=== PATIENT | female | born 1965 | race Caucasian/White ===

== ENCOUNTER 2018-06-29 13:14 | Emergency (ER) | payer MEDICARE, MEDICAID ==
[2018-06-29 13:20] VITALS: BP 138/77
--- NOTE | 2018-06-29 14:27 | RAD ---
HISTORY: FOOSH - both wrists COMPARISONS: None VIEWS: 6 , Frontal, lateral, and oblique views of the left wrist and of the right breast FINDINGS: Right: BONE DENSITY: Normal. BONES: There is no displaced fracture. JOINTS: There is no arthropathy. ALIGNMENT: There is no dislocation. The alignment is anatomic. SOFT TISSUES: Unremarkable. Left: BONE DENSITY: Normal. BONES: There is no displaced fracture. JOINTS: There is no arthropathy. ALIGNMENT: There is no dislocation. The alignment is anatomic. SOFT TISSUES: Unremarkable. OTHER FINDINGS: None. IMPRESSION: NO ACUTE OSSEOUS INJURY BILATERALLY. IF SYMPTOMS PERSIST, RECOMMEND REPEAT IMAGING.
--- NOTE | 2018-06-29 14:28 | RAD ---
HISTORY: bilateral forearm pain s/p fall COMPARISONS: None VIEWS: 2 , Frontal and lateral views of the left forearm FINDINGS: BONE DENSITY: Normal. BONES: There is mild depression of the radial aspect of the radial head JOINTS: There is no arthropathy. ALIGNMENT: There is no dislocation. SOFT TISSUES: Unremarkable. OTHER FINDINGS: None. IMPRESSION: PROBABLE IMPACTED RADIAL HEAD FRACTURE.
--- NOTE | 2018-06-29 14:29 | RAD ---
HISTORY: bilateral forearm pain s/p fall COMPARISONS: None VIEWS: 2 , Frontal and lateral views of the right forearm FINDINGS: BONE DENSITY: Normal. BONES: There is a linear lucency seen through the articular surface of the radial head. JOINTS: There is no arthropathy. ALIGNMENT: There is no dislocation. SOFT TISSUES: Unremarkable. OTHER FINDINGS: None. IMPRESSION: NONDISPLACED RADIAL HEAD FRACTURE.
--- NOTE | 2018-06-29 15:34 | ED ---
Upper Extremity Pain - HPI Summary HPI Summary: Patient is a 52-year-old female presenting to the ED after falling with a FOOSH injury bilaterally in the hallway just approximately 5 minutes [employer] TECH. She is endorsing pain to the bilateral wrists and bilateral forearms. There is no ecchymosis or swelling. She has never injured the arms before. Pain is currently rated a 7/10, constant and throbbing. She denies any other injuries and denies hitting her head. Denies any LOC. She states she is feeling otherwise at her baseline. Eyes any numbness or tingling, pulses +2 intact bilaterally to the radial side. Good cap refill. - History of Current Complaint Chief Complaint: EDExtremityUpper Stated Complaint: FALL/WRIST INJURY Time Seen by Provider: 06/29/18 13:16 Hx Obtained From: Patient Mechanism Of Injury: Fall From A Standing Position Onset/Duration: Started Minutes Ago Timing: Constant Severity Initially: Moderate Severity Currently: Moderate Pain Location: Elbow, Forearm, Wrist Character: Aching Aggravating Factor(s): Movement, Lifting, Flexion, Extension Alleviating Factor(s): Rest, Ice Associated Signs & Symptoms: Positive: Negative Related History: Dominant Hand Right - Risk Factors Non-Orthopedic Risk Factor: Negative DVT Risk Factors: Negative Septic Arthritis Risk Factor: Negative Compartment Syndrome Risk Factors: Pain - Allergies/Home Medications Allergies/Adverse Reactions: Allergies Allergy/AdvReac Type Severity Reaction Status Date / Time MS Amoxicillin Allergy Hives Verified 06/29/18 13:20 [From Augmentin] MS Cephalexin [From Keflex] Allergy Hives Verified 06/29/18 13:20 MS Clavulanic Acid Allergy Hives Verified 06/29/18 13:20 [From Augmentin] MS Prednisone [Prednisone] Allergy Hives Verified 06/29/18 13:20 MS Sulfa Antibiotics Allergy Hives Verified 06/29/18 13:20 [Sulfa Antibiotics] PMH/Surg Hx/FS Hx/Imm Hx Previously Healthy: Yes - Surgical History Surgery Procedure, Year, and Place: reconstruction face -1985 - Immunization History Hx Pertussis Vaccination: No Immunizations Up to Date: Yes Infectious Disease History: No Infectious Disease History: Denies: Traveled Outside the [place] in Last 30 Days - Family History Known Family History: Positive: Cardiac Disease - Social History Occupation: Employed Full-time Lives: With Family Alcohol Use: None Hx Substance Use: No Substance Use Type: Reports: None Hx Tobacco Use: Yes Smoking Status (MU): Light Every Day Tobacco Smoker Review of Systems Constitutional: Negative Negative: Fever, Chills, Fatigue, Skin Diaphoresis Negative: Palpitations, Chest Pain Negative: Shortness Of Breath, Cough Genitourinary: Negative Positive: no symptoms reported, see HPI Positive: Arthralgia, Myalgia Skin: Negative Neurological: Negative All Other Systems Reviewed And Are Negative: Yes Physical Exam Triage Information Reviewed: Yes Vital Signs On Initial Exam: Initial Vitals Temp Pulse Resp BP Pulse Ox 98.3 F 80 16 138/77 99 06/29/18 13:15 06/29/18 13:15 06/29/18 13:15 06/29/18 13:15 06/29/18 13:15 Vital Signs Reviewed: Yes Appearance: Positive: Well-Appearing, Well-Nourished Skin: Positive: Warm, Skin Color Reflects Adequate Perfusion Head/Face: Positive: Normal Head/Face Inspection Eyes: Positive: EOMI, ALLYSON, Conjunctiva Clear Neck: Positive: Supple, No Lymphadenopathy Respiratory/Lung Sounds: Positive: Clear to Auscultation, Breath Sounds Present Cardiovascular: Positive: RRR, Pulses are Symmetrical in both Upper and Lower Extremities Musculoskeletal: Positive: Pain @ - bilateral wrists and R forearm Neurological: Positive: Speech Normal Psychiatric: Positive: Affect/Mood Appropriate Diagnostics - Vital Signs Vital Signs Temp Pulse Resp BP Pulse Ox 06/29/18 15:25 97.7 F 82 18 100 06/29/18 13:15 98.3 F 80 16 138/77 99 - Laboratory Lab Statement: Any lab studies that have been ordered have been reviewed, and results considered in the medical decision making process. Course/Dx - Course Course Of Treatment: On physical examination, patient is evaluated for bilateral forearm pain and wrist pain. There appears to be radial head fracture of the right arm as well as an impacted radial head fracture to the left arm. She is given 2 bilateral slings. She will f/u with orthopedics. - Diagnoses Differential Diagnosis/HQI/PQRI: Positive: Fracture (Open), Fracture (Closed) Provider Diagnoses: Radial head fracture Discharge - Sign-Out/Discharge Documenting (check all that apply): Patient Departure - Discharge Plan Condition: Stable Disposition: HOME Patient Education Materials: Elbow Fracture (ED) Referrals: Rico Rosario MD [Medical Doctor] - Sai Gonzalez MD [Primary Care Provider] - Additional Instructions: Please follow-up with orthopedics Keep sling was applied - Billing Disposition and Condition Condition: STABLE Disposition: Home
== END 2018-06-29 15:25 | disposition home or self-care (01) ==
LOC: ED 13:14
DX: F17.210 Nicotine dependence, cigarettes, uncomplicated (principal); M79.632 Pain in left forearm; M79.631 Pain in right forearm; Z88.0 Allergy status to penicillin; S52.124A Nondisplaced fracture of head of right radius, initial encounter for closed fracture; W19.XXXA Unspecified fall, initial encounter; Y92.9 Unspecified place or not applicable
CPT/HCPCS: 99282

== ENCOUNTER 2019-01-19 06:22 | Day surgery (SDC) | payer MEDICARE, MEDICAID ==
[~2019-01-19 06:22] MED LIST: Buffered Lidocaine 1% SYRIN* 1 ML/SYRINGE INTRADERM ONE; Famotidine IV* 10 MG/ML 2 ML (20 mg) ONE; Lactated Ringers 1000 ML Bag* 1,000 ML IV SCH
[2019-01-19] MEDS ORDERED: Clindamycin 900 MG/D5W BAG(*) 900 MG/50 ML BAG IVPB ONE (06:27)
[2019-01-19] MEDS: Famotidine IV* 10 MG/ML 2 ML (20 mg) IV ONE ×2 (06:48→07:10)
[2019-01-19] MEDS ORDERED: Lidocaine 1% INJ* 10 MG/ML 30 ML SDV ONE (07:07)
[2019-01-19] MEDS ORDERED: Dexamethasone IV* 4 MG/ML 1 ML (4 MG) ONE (07:07)
[2019-01-19] MEDS ORDERED: Bupivacaine 0.25% SDV* 30 ML ONE (07:08)
[2019-01-19] MEDS ORDERED: Bupivacaine 0.5% SDV PF* 30ML VIAL ONE (07:19)
[2019-01-19] MEDS ORDERED: Lidocaine 2% PF * 5 ML VIAL ONE (07:26)
[2019-01-19] MEDS ORDERED: Midazolam* 1 MG/ML 5 ML VIAL (5 MG) ONE (07:26)
[2019-01-19] MEDS ORDERED: Propofol* 10 MG/ML 20 ML BTL ONE ×2 (07:26→08:26)
[2019-01-19] MEDS ORDERED: fentaNYL* 50 MCG/ML 2 ML VIAL (100 MCG VIAL) ONE (07:26)
[2019-01-19] MEDS ORDERED: Ondansetron INJ* 2 MG/ML VIAL ONE (08:25)
[2019-01-19 09:50] VITALS: BP 100/75
--- NOTE | 2019-01-19 12:30 | OP ---
OPERATIVE REPORT: DATE OF OPERATION: 01/19/19 - [facility] DATE OF : 65 SURGEON: Yogesh Escalante DPM HEAD SCORER: None ANESTHESIOLOGIST: Carrington Ramos MD ANESTHESIA: MAC local PRE-OP DIAGNOSIS: Painful bunion deformity with hallux limitus, left foot POST-OP DIAGNOSIS: Painful bunion deformity with hallux limitus, left foot OPERATIVE PROCEDURE: Bunionectomy with first metatarsal osteotomy and angular phalangeal osteotomy on the left foot. PATHOLOGY: Degenerative bone. HEMOSTASIS: Pneumatic ankle tourniquet. ESTIMATED BLOOD LOSS: Less than 20 cc. MATERIALS: A two of the 3.0 mm cannulated Whitney screws. INDICATIONS: The patient with chronic left forefoot pain and deformity about the great toe joint with bunion deformity, hypertrophic bone at the medial aspect of the joint, decrease range of motion. She has pain on walking or wearing shoes and opts for surgery at this time to attempt to decrease pain and improve her function and ability to wear shoes without pain. DESCRIPTION OF PROCEDURE: The patient was brought to the operating room and placed on the operating table in supine position. The anesthesia department administered IV sedation. A peripheral nerve block was performed about the left forefoot with a 1:1 mixture of 1% lidocaine plain and 0.5% Marcaine plain. The left foot was then prepped and draped in the usual fashion. The left foot was then exsanguinated with an Esmarch bandage and pneumatic ankle tourniquet was inflated to 250 mmHg about a well-padded left ankle. Attention was directed to the dorsomedial aspect of the left great toe joint, where a curvilinear incision was made. The incision was deepened through the subcutaneous tissues with care being taken to retract the neurovascular structures and cauterize superficial bleeders as needed. An inverted L- capsular incision was made in the periosteum and capsular tissues were reflected to allow for exposure of the joint. There was noted to be hypertrophic bone at the medial aspect of the first metatarsal head. Next, a traditional lateral release was performed by dissecting into the first intermetatarsal space and transecting the conjoint tendon of the adductor hallucis, lateral fibular sesamoid ligament and portion of lateral capsule. The McGlamry elevator was also needed to free plantar lateral adhesions of the sesamoid apparatus. This allowed for relaxation of all lateral contractures. It should be noted the extensor hallucis brevis tendon was also identified and transected. The medial eminence was resected with a sagittal saw to preserve the sagittal groove. The resultant bone was sent off the field as specimen. Next, a Chevron type first metatarsal osteotomy was performed with the apex just dorsal and proximal to the geometric center of the first metatarsal head. The plantar wing was cut angled slightly plantar proximally to offer some plantarflexion of the capital fragment. The dorsal wing was then cut. The capital fragment was transposed laterally to the corrected position. Temporary fixation was achieved with a wire from the screw set and the position was assessed with the C-arm. Next, using standard technique, a 3.0 mm cannulated Whitney screw was placed across the osteotomy site with care being taken to ensure the tip of the screw did not penetrate into the joint. The temporary fixation removed. The positioning was assessed with C-arm and the screw was found to be 2 fingers tight and the capital fragment solid was no detectable motion or gapping at the osteotomy site. There was visual inspection to ensure the tibial screw was not penetrating into the joint. A sagittal saw was used to resect the redundant medial shelf of bone and a power judith was used to smooth rough edges. The surgical site was flushed with copious amounts of normal sterile saline. Next is determined a phalangeal osteotomy was also needed for correction and dissection was carried further distal medially with care being taken to retract neurovascular structures and cauterize superficial bleeders. The tissues were reflected and allowed for exposure of the proximal phalanx. Next, an angular wedge of bone was resected, oriented from distal medial to more proximal lateral with the proximal lateral hinge maintained. The wedge bone was resected and the osteotomy was reduced. Temporary fixation was achieved with a bone clamp, and then correction was assessed with the C-arm, and the temporary fixation was achieved also with the wire from the screw set. Using standard technique, a 3.0 mm cannulated screws placed across the osteotomy site. The temporary fixation was removed. The correction of fixation was assessed with the C-arm. The screw was found to be 2 fingers tight and the osteotomy was solid with no detectable motion or gapping. The surgical site was flushed with copious amounts of normal sterile saline. Capsulorrhaphy was performed resecting redundant medial capsule. The capsular and periosteal tissues were reapproximated and secured with 2-0 Vicryl. Subcutaneous tissues were approximated with 4-0 Vicryl and the skin was reapproximated and secured with 5-0 nylon. 12 mg of dexamethasone phosphate was infiltrated about the surgical site. The incision was dressed with Xeroform dressing and a gauze and a mildly compressive dressing was applied with 4 x 4 gauze, Gisselle, and a light Coban wrap. The pneumatic ankle tourniquet was deflated about the left ankle and a prompt hyperemic response was noted about all 5 digits of the patient's left foot. Having appeared to tolerate the procedure and anesthesia well, the patient was transported via cart from the operating room to Recovery in satisfactory condition with cap refill less than 3 seconds to all digits of the left foot. [id number]/CPS #: [id number] MTDD
== END 2019-01-19 09:46 | disposition home or self-care (01) ==
LOC: OREAST 06:22
PROVIDERS: ATTEND Podiatrist Foot Surgery
DX: M21.612 Bunion of left foot (principal); M20.5X2 Other deformities of toe(s) (acquired), left foot; J44.9 Chronic obstructive pulmonary disease, unspecified; F41.8 Other specified anxiety disorders
CPT/HCPCS: 76000; 88304; 88311; C1713; C1776; J1100; J2250; J2405; J2704; J3010

== ENCOUNTER 2019-04-20 07:54 | Day surgery (SDC) | payer MEDICARE, MEDICAID ==
[~2019-04-20 07:54] MED LIST changes: +Dexamethasone IV* 4 MG/ML 1 ML (4 MG) IV SLOW PU ONE; +Famotidine IV* 10 MG/ML 2 ML (20 mg) IV ONE; -Famotidine IV* 10 MG/ML 2 ML (20 mg) ONE
[2019-04-20] MEDS ORDERED: Lidocaine 1% INJ* 10 MG/ML 30 ML SDV ONE (08:08)
[2019-04-20] MEDS ORDERED: Bupivacaine 0.25% SDV* 30 ML ONE (08:09)
[2019-04-20] MEDS ORDERED: Dexamethasone IV* 4 MG/ML 1 ML (4 MG) ONE ×2 (08:09→08:11)
[2019-04-20] MEDS ORDERED: Famotidine IV* 10 MG/ML 2 ML (20 mg) ONE (08:11)
[2019-04-20] MEDS ORDERED: Clindamycin 900 MG IVPREMIX(* 900 MG/50 ML SDV IV ONE (08:11)
[2019-04-20] MEDS ORDERED: Midazolam* 1 MG/ML 5 ML VIAL (5 MG) ONE (08:55)
[2019-04-20] MEDS ORDERED: fentaNYL* 50 MCG/ML 2 ML VIAL (100 MCG VIAL) ONE (08:55)
[2019-04-20] MEDS ORDERED: Ketorolac INJ* 30 MG/ML 1 ML VIAL ONE (08:57)
[2019-04-20] MEDS ORDERED: Propofol* 10 MG/ML 20 ML BTL ONE (08:57)
[2019-04-20] MEDS ORDERED: Ondansetron INJ* 2 MG/ML VIAL ONE (08:57)
[2019-04-20] MEDS ORDERED: DiMENhydriNATE IV* 50 MG/ML VIAL IV PUSH PRN (10:07)
[2019-04-20] MEDS ORDERED: Ondansetron INJ* 2 MG/ML VIAL IV PRN (10:07)
[2019-04-20] MEDS ORDERED: fentaNYL* 50 MCG/ML 2 ML VIAL (100 MCG VIAL) IV PRN (10:07)
[2019-04-20] MEDS ORDERED: oxyCODONE/Acetamin 5/325 MG* TAB PO PRN (10:07)
[2019-04-20] MEDS ORDERED: Naloxone* 0.4 MG/ML 1 ML VIAL IV PRN (10:07)
[2019-04-20] MEDS ORDERED: Acetaminophen TAB* 325 MG ONE (11:23)
[2019-04-20 12:02] VITALS: BP 124/83
--- NOTE | 2019-04-20 13:19 | OP ---
DATE OF OPERATION: 04/20/19 - [facility] DATE OF : 65 SURGEON: Yogesh Escalante DPM. [employer] OPERATOR: None. ANESTHESIA: MAC with local. PRE-OP DIAGNOSES: 1. Painful recurrent bunion deformity on right foot. 2. Painful deep screw fixation hardware in right first metatarsal. POST-OP DIAGNOSES: 1. Painful recurrent bunion deformity on right foot. 2. Painful deep screw fixation hardware in right first metatarsal. OPERATIVE PROCEDURE: 1. Removal of two deep screws from right foot. 2. Bunionectomy with closing base wedge osteotomy and phalangeal osteotomy on the right foot. PATHOLOGY: Degenerative bone in the two removed screws. HEMOSTASIS: Pneumatic ankle tourniquet. MATERIALS: Three of the 3.0 mm cannulated Whitney screws. INDICATIONS: The patient is with previous bunion surgery approximately 15 years ago. The bunion has recurred. She has pain and recurrent deformity. She also has two deep buried screws in the first metatarsal. The patient has pain with walking and wearing shoes, and opts for surgery at this time to attempt to decrease her pain and improve her function and ability to wear shoes without pain. DESCRIPTION OF PROCEDURE: The patient was brought to the operating room and placed on the operating table in supine position. The anesthesia department administered IV sedation and a peripheral nerve block was performed about the right foot with 1:1 mixture of 1% lidocaine plain and 0.5% Marcaine plain. The right foot was prepped and draped in the usual fashion. Attention was directed to the dorsomedial aspect of the right great toe joint, where a curvilinear incision was made. The incision was deepened through the subcutaneous tissues with care being taken to retract the neurovascular structures and cauterize superficial bleeders as needed. It should be noted that there was disruption of the normal tissue plane due to previous surgery. There was some fibrous scar tissue and the soft tissue planes were restored. An inverted L capsular incision was made to allow for exposure of the first metatarsal. The periosteum and capsular tissues were reflected as needed. There were two, what appeared to be Synthes screws, which were mostly embedded with bony overgrowth over the head of the screws. A great deal of time was required to allow each of the screw heads to excise bony overgrowth and reestablish the pattern of the head, so they can be removed from the first metatarsal. Collectively, this took approximately half an hour as the head of the screws were stripped or had been what appears to be previously stripped. This being done, next a closing- base wedge osteotomy was performed in the first metatarsal with the osteotomy reduced and temporary fixation with the bone clamp. Two wires from the screw set were placed and position was checked with the C-arm and using the standard technique, 2 of the 3.0 mm cannulated screws was placed across the osteotomy site from medial and lateral. Temporary fixation was removed and the positioning was assessed with C-arm and the osteotomy was inspected and found to be solid with no detectable motion or gapping. A stainless saw and bur were used to remodel the medial aspect of the first metatarsal head where there has been some bony regrowth and osteophyte proliferation. The surgical site was flushed with copious amounts of normal sterile saline. There was still some hallux interphalangeus, so the dissection was carried further distal-medially to allow for exposure of the proximal phalanx and an angular wedge of bone was resected from the proximal phalanx. Temporary fixation was achieved with a wire from the screw set and the position was checked with C-arm and a 3.0-mm cannulated screw was placed across the osteotomy site. The temporary fixation was removed. The osteotomy was inspected and found to be solid with no detectable motion or gapping in the final correction and fixation was again assessed with the C-arm. Capsulorrhaphy was performed resecting redundant medial capsule. The surgical site was flushed with copious amounts of normal sterile saline. Also, it should be noted that some revision was also required at the lateral aspect of the great toe joint for lateral release to further release the lateral capsular tissues. The periosteum and capsular tissues were secured with 2-0 Vicryl. Subcutaneous tissues were closed in layers with 4-0 Vicryl and skin was closed with 5-0 nylon. A 12 mg of dexamethasone phosphate was infiltrated about the surgical site and the incision was dressed with Xeroform gauze and a dressing of 4x4 gauze, Gisselle, and light Coban wrap was applied. The pneumatic ankle tourniquet was deflated about the left ankle and a prompt hyperemic response was noted in all 5 digits of the patient's right foot. Having appeared to tolerate the procedure and anesthesia well, the patient was transported via cart from the operating room to recovery in satisfactory condition with cap refill less than 3 seconds to all digits in the right foot. [id number] #: [id number] [place]
== END 2019-04-20 12:10 | disposition home or self-care (01) ==
LOC: OREAST 07:54
PROVIDERS: ATTEND Podiatrist Foot Surgery
DX: M21.611 Bunion of right foot (principal); T84.84XA Pain due to internal orthopedic prosthetic devices, implants and grafts, initial encounter; Y83.1 Surgical operation with implant of artificial internal device as the cause of abnormal reaction of the patient, or of later complication, without mention of misadventure at the time of the procedure; J44.9 Chronic obstructive pulmonary disease, unspecified; K21.9 Gastro-esophageal reflux disease without esophagitis; M54.5 Low back pain
CPT/HCPCS: 76000; 88300; 88304; 88311; A9270-GY; C1713; C1776; J1100; J1885; J2250; J2405; J2704; J3010; J3490